=== PATIENT | male | born 1985 | race Two or more races ===

== ENCOUNTER 2023-03-08 17:20 | Inpatient (IN) | payer MEDICARE, MEDICAID ==
[2023-03-08] MEDS ORDERED: QUET200T5 PO (17:50)
[2023-03-08] MEDS ORDERED: LUMA42CA PO (17:50)
[2023-03-08 18:01] LABS: GLUCOMETER DEV NAME(LOC) POC.BV
[2023-03-08] MEDS ORDERED: LORazepam 2 MG/ML VIAL IM ONE (18:15)
[2023-03-08] MEDS ORDERED: DiphenhydrAMINE HCL 50 MG/ML VIAL IM ONE ×2 (18:15→20:00)
[2023-03-08] MEDS ORDERED: HALOPERIDOL LACTATE 5 MG/ML VIAL IM ONE (18:15)
[2023-03-08] MEDS ORDERED: ZOLPIDEM TARTRATE 10 MG TABLET PO PRN (18:15)
[2023-03-08 20:28] VITALS: BP 122/79
[2023-03-08 20:48] VITALS: BP 116/68
[2023-03-09] MEDS ORDERED: PETROLATUM,WHITE 28 GM JELLY TP PRN (05:45)
[2023-03-09] MEDS ORDERED: BACITRACIN 28 GM OINTMENT TP PRN (05:45)
[2023-03-09] MEDS ORDERED: OMEPRAZOLE 20 MG CAPSULE PO PRN (05:45)
[2023-03-09] MEDS ORDERED: MAGNESIUM HYDROXIDE SUSPENSION 30 ML UDCUP PO PRN (05:45)
[2023-03-09] MEDS ORDERED: DOCUSATE SODIUM 100 MG CAPSULE PO PRN (05:45)
[2023-03-09] MEDS ORDERED: CloNIDine HCL 0.1 MG TABLET PO PRN (05:45)
[2023-03-09] MEDS ORDERED: ACETAMINOPHEN 325 MG TABLET PO PRN (05:45)
[2023-03-09] MEDS ORDERED: ONDANSETRON HCL 4 MG TABLET PO PRN (05:45)
[2023-03-09] MEDS ORDERED: IBUPROFEN 600 MG TABLET PO PRN (05:45)
[2023-03-09] MEDS ORDERED: MAG HYDROX/AL HYDROX/SIMETH ES 30 ML SUSPENSION UDCUP PO PRN (05:45)
[2023-03-09] MEDS ORDERED: ALBUTEROL SULFATE HFA 90 MCG/PUFF 8 GM INHALER IH PRN (05:45)
[2023-03-09] MEDS ORDERED: LOPERAMIDE HCL 2 MG CAPSULE PO PRN (05:45)
[2023-03-09] MEDS: LORazepam 2 MG TABLET PO PRN ×2 (10:58→16:54)
[2023-03-09] MEDS: HALOPERIDOL 5 MG TABLET PO PRN (14:22)
[2023-03-10] MEDS: LITHIUM CARBONATE 300 MG CAPSULE PO SCH ×2 (17:00→17:48)
[2023-03-10] MEDS: DIVALPROEX SODIUM 500 MG DR TABLET PO SCH (17:48)
[2023-03-10] MEDS: QUEtiapine FUMARATE 300 MG TABLET PO SCH (20:05)
[2023-03-10] MEDS: LORazepam 2 MG TABLET PO PRN (20:05)
[2023-03-11 07:08] LABS: BASOPHILS % (AUTO) 0.7 % (0.0-2.0); EOSINOPHILS % (AUTO) 5.4 % (1.0-6.0); HEMATOCRIT 39.3 % (41-53); HEMOGLOBIN 12.8 g/dL (13.5-17.5); LYMPHOCYTES # (AUTO) 2.4 K/uL (1.0-4.8); LYMPHOCYTES % (AUTO) 31.2 % (22.0-44.0); MEAN CORPUSCULAR HGB CONC 32.7 G/dL (31.0-37.0); MEAN CORPUSCULAR VOLUME 83 fL (80-100); MONOCYTES # (AUTO) 0.5 K/uL (0.1-1.0); MONOCYTES % (AUTO) 6.7 % (2.0-9.0); NEUTROPHILS # (AUTO) 4.4 K/uL (1.8-7.7); PLATELET COUNT (AUTO) 322 K/uL (150-450); RED BLOOD CELL COUNT(AUTO) 4.76 MIL/uL (4.50-5.90); RED CELL DISTRIBUTION WIDTH 14.3 % (11.5-14.5)
[2023-03-11 07:37] LABS: ALANINE AMINOTRANSFERASE 63 U/L (12-78); ALBUMIN 3.2 g/dL (3.4-5.0); ALKALINE PHOSPHATASE 76 U/L (46-116); ANION GAP 13 mmol/L (8-16); ASPARTATE AMINOTRANSFERASE 24 U/L (15-37); BILIRUBIN,TOTAL 0.3 mg/dL (0.1-1.0); CALCIUM, TOTAL 8.7 mg/dL (8.8-10.5); CARBON DIOXIDE 25 mmol/L (22-29); CHLORIDE 106 mmol/L (98-107); CHOL/HDL RATIO 4.3 (4.2-7.3); CHOLESTEROL 145 mg/dL (131-200); CREATININE 0.65 mg/dL (0.60-1.30); FREE T4 (FREE THYROXINE) 1.35 ng/dL (0.76-1.46); GLOMERULAR FILTR. RATE CALC > 60 mL/min (>60); GLUCOSE,RANDOM 94 mg/dL (70-110); HDL CHOLESTEROL 34 mg/dL (40-60); LDL CHOL (CALC.) 90 mg/dL (0-130); POTASSIUM 3.6 mmol/L (3.5-5.1); SODIUM SERUM 144 mmol/L (136-145); THYROID STIMULATING HORMONE 1.96 uIU/mL (0.36-3.74); TOTAL PROTEIN, SERUM 6.8 g/dL (6.4-8.2); TRIGLYCERIDES 107 mg/dL (15-150)
[2023-03-11 07:41] LABS: HEMOGLOBIN A1C 5.5 % (3.8-5.6)
[2023-03-11] MEDS: LORazepam 2 MG TABLET PO PRN (08:09)
[2023-03-11] MEDS: DIVALPROEX SODIUM 500 MG DR TABLET PO SCH ×2 (08:09→17:00)
[2023-03-11] MEDS: LITHIUM CARBONATE 300 MG CAPSULE PO SCH ×2 (08:09→17:00)
[2023-03-11 08:17] VITALS: BP 107/61
[2023-03-11] MEDS: QUEtiapine FUMARATE 300 MG TABLET PO SCH (21:00)
[2023-03-12] MEDS: DIVALPROEX SODIUM 500 MG DR TABLET PO SCH ×4 (08:16→18:38)
[2023-03-12] MEDS: LITHIUM CARBONATE 300 MG CAPSULE PO SCH ×3 (08:16→17:00)
[2023-03-12 08:42] VITALS: BP 125/79
[2023-03-12] MEDS: QUEtiapine FUMARATE 300 MG TABLET PO SCH (21:00)
[2023-03-12 21:17] VITALS: BP 131/73
[2023-03-13 08:27] VITALS: BP 115/70
[2023-03-13] MEDS: LITHIUM CARBONATE 300 MG CAPSULE PO SCH ×2 (09:00→17:00)
[2023-03-13] MEDS: DIVALPROEX SODIUM 500 MG DR TABLET PO SCH ×2 (09:00→17:00)
[2023-03-13] MEDS: QUEtiapine FUMARATE 300 MG TABLET PO SCH (20:49)
[2023-03-13 22:11] VITALS: BP 132/73
[2023-03-14 07:35] LABS: LITHIUM < 0.20 mmol/L (0.60-1.20)
[2023-03-14 07:48] LABS: VALPROIC ACID 18 mcg/mL (50-100)
[2023-03-14] MEDS: LITHIUM CARBONATE 300 MG CAPSULE PO SCH ×2 (08:27→17:00)
[2023-03-14] MEDS: DIVALPROEX SODIUM 500 MG DR TABLET PO SCH ×2 (08:27→17:00)
[2023-03-14] MEDS ORDERED: LORazepam 2 MG/ML VIAL ONE ×2 (11:27→11:28)
[2023-03-14] MEDS ORDERED: LORazepam 2 MG/ML VIAL IM ONE ×3 (11:30→16:00)
[2023-03-14 20:11] VITALS: BP 118/66
[2023-03-14] MEDS: QUEtiapine FUMARATE 300 MG TABLET PO SCH (21:00)
[2023-03-15 08:23] VITALS: BP 112/71
[2023-03-15] MEDS: LITHIUM CARBONATE 300 MG CAPSULE PO SCH (08:25)
[2023-03-15] MEDS: DIVALPROEX SODIUM 500 MG DR TABLET PO SCH ×3 (08:29→09:18)
[2023-03-15] MEDS ORDERED: HALOPERIDOL DECANOATE 100 MG/ML VIAL IM ONE (10:30)
[2023-03-15] MEDS ORDERED: LORazepam 2 MG/ML VIAL ONE (12:12)
[2023-03-15] MEDS ORDERED: HALOPERIDOL LACTATE 5 MG/ML VIAL ONE (12:12)
[2023-03-15] MEDS ORDERED: DiphenhydrAMINE HCL 50 MG/ML VIAL ONE (12:13)
[2023-03-15] MEDS ORDERED: LORazepam 2 MG/ML VIAL IM ONE (12:30)
[2023-03-15] MEDS ORDERED: DiphenhydrAMINE HCL 50 MG/ML VIAL IM ONE (12:30)
[2023-03-15] MEDS ORDERED: HALOPERIDOL LACTATE 5 MG/ML VIAL IM ONE (12:30)
[2023-03-15 20:26] VITALS: BP 120/64
[2023-03-16 08:27] VITALS: BP 126/73
[2023-03-16 20:18] VITALS: BP 129/86
[2023-03-17] MEDS: LORazepam 2 MG TABLET PO PRN (08:35)
[2023-03-17] MEDS: HALOPERIDOL 5 MG TABLET PO PRN (08:35)
[2023-03-17 20:13] VITALS: BP 122/82
[2023-03-17] MEDS ORDERED: DiphenhydrAMINE HCL 50 MG/ML VIAL IM ONE (20:30)
[2023-03-17] MEDS ORDERED: LORazepam 2 MG/ML VIAL IM ONE (20:30)
[2023-03-17] MEDS ORDERED: HALOPERIDOL LACTATE 5 MG/ML VIAL IM ONE (20:30)
[2023-03-18] MEDS ORDERED: HALOPERIDOL DECANOATE 50 MG/ML VIAL IM ONE (10:30)
[2023-03-18 20:11] VITALS: BP 118/71
[2023-03-19] MEDS: HALOPERIDOL 5 MG TABLET PO PRN ×2 (07:44→18:54)
[2023-03-19] MEDS: LORazepam 2 MG TABLET PO PRN ×2 (07:44→18:54)
[2023-03-20 01:28] VITALS: BP 121/75
[2023-03-20 08:54] VITALS: BP 108/59
[2023-03-20] MEDS: HALOPERIDOL 5 MG TABLET PO PRN (12:01)
[2023-03-20] MEDS: LORazepam 2 MG TABLET PO PRN (12:01)
[2023-03-21 08:17] VITALS: BP 133/71
[2023-03-21 20:29] VITALS: BP 126/80
[2023-03-22 09:30] VITALS: BP 124/85
[2023-03-22 09:45] VITALS: BP 121/84
[2023-03-22 10:15] VITALS: BP 121/78
[2023-03-23 08:17] VITALS: BP 118/79
[2023-03-23 21:32] VITALS: BP 123/64
[2023-03-24 08:20] VITALS: BP 143/89
[2023-03-24 23:05] VITALS: BP 130/81
[2023-03-25 11:20] VITALS: BP 114/65
[2023-03-25] MEDS ORDERED: HALO100V36 IM (17:05)
[2023-04-14] MEDS ORDERED: HALOPERIDOL DECANOATE 100 MG/ML VIAL IM SCH (09:00)
== END 2023-03-25 22:12 | disposition home or self-care (01) | DRG 885 ==
LOC: B3A 18:10
PROVIDERS: ADMIT Psychiatry & Neurology Psychiatry; ATTEND Psychiatry & Neurology Psychiatry
DX: F25.9 Schizoaffective disorder, unspecified (principal); F06.1 Catatonic disorder due to known physiological condition; G47.00 Insomnia, unspecified; F41.9 Anxiety disorder, unspecified; Z20.822 Contact with and (suspected) exposure to COVID-19; K59.00 Constipation, unspecified; F94.0 Selective mutism; Z89.612 Acquired absence of left leg above knee
CPT/HCPCS: 80053; 80061; 80164; 80178; 83036; 84439; 84443; 85025; J1200; J1630; J1631; J2060

== ENCOUNTER 2023-03-27 20:40 | Inpatient (IN) | payer MEDICARE, MEDICAID ==
[~2023-03-27 20:40] MED LIST: HALO100V36 IM
[2023-03-27] MEDS ORDERED: LORazepam 2 MG TABLET PO PRN (23:00)
[2023-03-27] MEDS ORDERED: ZOLPIDEM TARTRATE 10 MG TABLET PO PRN (23:00)
[2023-03-27] MEDS ORDERED: HALOPERIDOL 5 MG TABLET PO PRN (23:00)
[2023-03-28 03:36] VITALS: BP 120/61
[2023-03-28] MEDS ORDERED: LOPERAMIDE HCL 2 MG CAPSULE PO PRN (05:45)
[2023-03-28] MEDS ORDERED: PETROLATUM,WHITE 28 GM JELLY TP PRN (05:45)
[2023-03-28] MEDS ORDERED: IBUPROFEN 600 MG TABLET PO PRN (05:45)
[2023-03-28] MEDS ORDERED: MAGNESIUM HYDROXIDE SUSPENSION 30 ML UDCUP PO PRN (05:45)
[2023-03-28] MEDS ORDERED: CloNIDine HCL 0.1 MG TABLET PO PRN (05:45)
[2023-03-28] MEDS ORDERED: OMEPRAZOLE 20 MG CAPSULE PO PRN (05:45)
[2023-03-28] MEDS ORDERED: MAG HYDROX/AL HYDROX/SIMETH ES 30 ML SUSPENSION UDCUP PO PRN (05:45)
[2023-03-28] MEDS ORDERED: BACITRACIN 28 GM OINTMENT TP PRN (05:45)
[2023-03-28] MEDS ORDERED: ACETAMINOPHEN 325 MG TABLET PO PRN (05:45)
[2023-03-28] MEDS ORDERED: DOCUSATE SODIUM 100 MG CAPSULE PO PRN (05:45)
[2023-03-28] MEDS ORDERED: ALBUTEROL SULFATE HFA 90 MCG/PUFF 8 GM INHALER IH PRN (05:45)
[2023-03-28] MEDS ORDERED: ONDANSETRON HCL 4 MG TABLET PO PRN (05:45)
[2023-03-28] MEDS ORDERED: HALO100V36 IM (09:46)
[2023-03-28 20:00] VITALS: BP 118/64
[2023-03-29 07:56] LABS: BASOPHILS % (AUTO) 0.5 % (0.0-2.0); EOSINOPHILS % (AUTO) 3.5 % (1.0-6.0); HEMATOCRIT 38.8 % (41-53); HEMOGLOBIN 12.7 g/dL (13.5-17.5); LYMPHOCYTES # (AUTO) 1.9 K/uL (1.0-4.8); LYMPHOCYTES % (AUTO) 18.9 % (22.0-44.0); MEAN CORPUSCULAR HEMOGLOBIN 26.9 pg (26.0-34.0); MEAN CORPUSCULAR HGB CONC 32.6 G/dL (31.0-37.0); MEAN CORPUSCULAR VOLUME 83 fL (80-100); MONOCYTES # (AUTO) 0.6 K/uL (0.1-1.0); MONOCYTES % (AUTO) 6.1 % (2.0-9.0); NEUTROPHILS # (AUTO) 7.1 K/uL (1.8-7.7); PLATELET COUNT (AUTO) 338 K/uL (150-450); RED CELL DISTRIBUTION WIDTH 14.4 % (11.5-14.5)
[2023-03-29 08:06] LABS: HEMOGLOBIN A1C 5.3 % (3.8-5.6)
[2023-03-29 08:25] LABS: ALANINE AMINOTRANSFERASE 55 U/L (12-78); ALBUMIN 3.1 g/dL (3.4-5.0); ALKALINE PHOSPHATASE 81 U/L (46-116); ANION GAP 7 mmol/L (8-16); ASPARTATE AMINOTRANSFERASE 30 U/L (15-37); BILIRUBIN,TOTAL 0.4 mg/dL (0.1-1.0); CALCIUM, TOTAL 8.9 mg/dL (8.8-10.5); CARBON DIOXIDE 25 mmol/L (22-29); CHLORIDE 105 mmol/L (98-107); CHOL/HDL RATIO 4.7 (4.2-7.3); CHOLESTEROL 178 mg/dL (131-200); CREATININE 0.61 mg/dL (0.60-1.30); FREE T4 (FREE THYROXINE) 1.19 ng/dL (0.76-1.46); GLOMERULAR FILTR. RATE CALC > 60 mL/min (>60); GLUCOSE,RANDOM 96 mg/dL (70-110); HDL CHOLESTEROL 38 mg/dL (40-60); LDL CHOL (CALC.) 126 mg/dL (0-130); POTASSIUM 4.1 mmol/L (3.5-5.1); SODIUM SERUM 137 mmol/L (136-145); THYROID STIMULATING HORMONE 1.74 uIU/mL (0.36-3.74); TOTAL PROTEIN, SERUM 6.9 g/dL (6.4-8.2); TRIGLYCERIDES 70 mg/dL (15-150); VALPROIC ACID 5 mcg/mL (50-100)
[2023-03-29 09:51] LABS: LITHIUM < 0.20 mmol/L (0.60-1.20)
[2023-03-30 08:07] VITALS: BP 117/65
[2023-03-30 20:17] VITALS: BP 118/73
[2023-03-31 08:21] VITALS: BP 105/56
[2023-03-31 20:02] VITALS: BP 128/64
== END 2023-03-31 21:40 | disposition left against medical advice (07) | DRG 885 ==
LOC: B3A 22:58
PROVIDERS: ADMIT Psychiatry & Neurology Psychiatry; ATTEND Psychiatry & Neurology Psychiatry
DX: F25.9 Schizoaffective disorder, unspecified (principal); F41.9 Anxiety disorder, unspecified; Z53.29 Procedure and treatment not carried out because of patient's decision for other reasons; G47.00 Insomnia, unspecified; K59.00 Constipation, unspecified; Z56.0 Unemployment, unspecified; Z89.612 Acquired absence of left leg above knee
CPT/HCPCS: 80053; 80061; 80164; 80178; 83036; 84439; 84443; 85025; 87081

== ENCOUNTER 2023-03-27 22:43 | Emergency (ER) | payer OTHER ==
[~2023-03-27] VITALS: Ht 167.6 cm; Wt 77.3 kg
[2023-03-27] MEDS ORDERED: DiphenhydrAMINE HCL 50 MG/ML VIAL IM ONE (23:00)
[2023-03-27] MEDS ORDERED: HALOPERIDOL LACTATE 5 MG/ML VIAL IM ONE (23:00)
[2023-03-27] MEDS ORDERED: LORazepam 2 MG/ML VIAL IM ONE (23:00)
[2023-03-27 23:20] LABS: BASOPHILS % (AUTO) 0.8 % (0.0-2.0); HEMATOCRIT 40.3 % (41-53); HEMOGLOBIN 13.1 g/dL (13.5-17.5); LYMPHOCYTES # (AUTO) 2.2 K/uL (1.0-4.8); LYMPHOCYTES % (AUTO) 19.4 % (22.0-44.0); MEAN CORPUSCULAR HEMOGLOBIN 26.8 pg (26.0-34.0); MEAN CORPUSCULAR HGB CONC 32.5 G/dL (31.0-37.0); MEAN CORPUSCULAR VOLUME 83 fL (80-100); MONOCYTES # (AUTO) 0.8 K/uL (0.1-1.0); MONOCYTES % (AUTO) 7.2 % (2.0-9.0); NEUTROPHILS # (AUTO) 8.2 K/uL (1.8-7.7); NEUTROPHILS % (AUTO) 70.6 % (40.0-70.0); PLATELET COUNT (AUTO) 390 K/uL (150-450); RED BLOOD CELL COUNT(AUTO) 4.89 MIL/uL (4.50-5.90); RED CELL DISTRIBUTION WIDTH 14.6 % (11.5-14.5)
[2023-03-27 23:35] LABS: AMPHET/METH SCREEN,URINE NEGATIVE (NEGATIVE); BARBITURATE SCREEN, URINE NEGATIVE (NEGATIVE); BENZODIAZEPINES SCREEN,URINE NEGATIVE (NEGATIVE); CANNABINOID SCREEN,URINE NEGATIVE (NEGATIVE); COCAINE SCREEN,URINE NEGATIVE (NEGATIVE); METHADONE SCREEN, URINE NEGATIVE (NEGATIVE); OPIATE SCREEN,URINE NEGATIVE (NEGATIVE); PHENCYCLIDINE SCREEN,URINE NEGATIVE (NEGATIVE)
[2023-03-27 23:40] LABS: ALANINE AMINOTRANSFERASE 44 U/L (12-78); ALBUMIN 3.5 g/dL (3.4-5.0); ALKALINE PHOSPHATASE 89 U/L (46-116); ANION GAP 10 mmol/L (8-16); ASPARTATE AMINOTRANSFERASE 19 U/L (15-37); BILIRUBIN,TOTAL 0.2 mg/dL (0.1-1.0); CALCIUM, TOTAL 8.8 mg/dL (8.8-10.5); CARBON DIOXIDE 28 mmol/L (22-29); CHLORIDE 105 mmol/L (98-107); GLOMERULAR FILTR. RATE CALC > 60 mL/min (>60); GLUCOSE,RANDOM 115 mg/dL (70-110); POTASSIUM 3.7 mmol/L (3.5-5.1); SODIUM SERUM 143 mmol/L (136-145); TOTAL PROTEIN, SERUM 7.4 g/dL (6.4-8.2)
[2023-03-27 23:45] VITALS: BP 121/78
[2023-03-28 00:07] LABS: COVID AG,FIA SOURCE NASOPHARYNGEAL
[2023-03-28] MEDS ORDERED: HALO100V36 IM (09:46)
== END 2023-03-28 02:40 | disposition home or self-care (01) ==
LOC: EMS 22:44
DX: F20.9 Schizophrenia, unspecified (principal); Z20.822 Contact with and (suspected) exposure to COVID-19
CPT/HCPCS: 99285; 87426; 80053; 85025; 36415; 96372; 80307 ×2; G0480; J1200; J1630; J2060

== ENCOUNTER 2023-04-25 15:07 | Inpatient (IN) | payer MEDICARE, MEDICAID ==
[2023-04-25] MEDS ORDERED: LORazepam 2 MG/ML VIAL IM ONE (15:45)
[2023-04-25] MEDS ORDERED: DiphenhydrAMINE HCL 50 MG/ML VIAL IM ONE (15:45)
[2023-04-25] MEDS ORDERED: HALOPERIDOL LACTATE 5 MG/ML VIAL IM ONE (15:45)
[2023-04-25 16:00] VITALS: BP 138/85; PULSE 113; RESP 18; TEMP 98.4; O2SAT 98
[2023-04-25] MEDS ORDERED: HALOPERIDOL 5 MG TABLET PO PRN (16:15)
[2023-04-25] MEDS ORDERED: LORazepam 2 MG TABLET PO PRN (16:15)
[2023-04-25] MEDS ORDERED: ZOLPIDEM TARTRATE 10 MG TABLET PO PRN (16:15)
[2023-04-25] MEDS ORDERED: AMAN-24 PO (16:21)
[2023-04-25] MEDS ORDERED: TRAZ-257 PO (16:21)
[2023-04-25] MEDS ORDERED: HALO2ORA11 PO (16:21)
[2023-04-25 16:56] VITALS: RESP 20
[2023-04-25 18:42] LABS: GLUCOMETER DEV NAME(LOC) POC.BV
[2023-04-25 20:10] VITALS: BP 138/78; PULSE 108; RESP 20; TEMP 98.2; O2SAT 98
[2023-04-26] MEDS ORDERED: OMEPRAZOLE 20 MG CAPSULE PO PRN (05:45)
[2023-04-26] MEDS ORDERED: LOPERAMIDE HCL 2 MG CAPSULE PO PRN (05:45)
[2023-04-26] MEDS ORDERED: MAGNESIUM HYDROXIDE SUSPENSION 30 ML UDCUP PO PRN (05:45)
[2023-04-26] MEDS ORDERED: ACETAMINOPHEN 325 MG TABLET PO PRN (05:45)
[2023-04-26] MEDS ORDERED: MAG HYDROX/AL HYDROX/SIMETH ES 30 ML SUSPENSION UDCUP PO PRN (05:45)
[2023-04-26] MEDS ORDERED: DOCUSATE SODIUM 100 MG CAPSULE PO PRN (05:45)
[2023-04-26] MEDS ORDERED: ONDANSETRON HCL 4 MG TABLET PO PRN (05:45)
[2023-04-26] MEDS ORDERED: CloNIDine HCL 0.1 MG TABLET PO PRN (05:45)
[2023-04-26] MEDS ORDERED: IBUPROFEN 600 MG TABLET PO PRN (05:45)
[2023-04-26] MEDS ORDERED: BENZOCAINE/MENTHOL LOZENGE PO PRN (05:45)
[2023-04-26] MEDS ORDERED: BACITRACIN 28 GM OINTMENT TP PRN (05:45)
[2023-04-26] MEDS ORDERED: ALBUTEROL SULFATE HFA 90 MCG/PUFF 8 GM INHALER IH PRN (05:45)
[2023-04-26] MEDS ORDERED: PETROLATUM,WHITE 28 GM JELLY TP PRN (05:45)
[2023-04-26 08:07] LABS: BASOPHILS % (AUTO) 0.7 % (0.0-2.0); EOSINOPHILS % (AUTO) 2.7 % (1.0-6.0); HEMATOCRIT 41.4 % (41-53); HEMOGLOBIN 13.4 g/dL (13.5-17.5); LYMPHOCYTES # (AUTO) 1.8 K/uL (1.0-4.8); LYMPHOCYTES % (AUTO) 19.8 % (22.0-44.0); MEAN CORPUSCULAR HEMOGLOBIN 26.7 pg (26.0-34.0); MEAN CORPUSCULAR HGB CONC 32.4 G/dL (31.0-37.0); MEAN CORPUSCULAR VOLUME 82 fL (80-100); MONOCYTES # (AUTO) 0.6 K/uL (0.1-1.0); MONOCYTES % (AUTO) 6.4 % (2.0-9.0); NEUTROPHILS # (AUTO) 6.4 K/uL (1.8-7.7); NEUTROPHILS % (AUTO) 70.4 % (40.0-70.0); PLATELET COUNT (AUTO) 366 K/uL (150-450); RED BLOOD CELL COUNT(AUTO) 5.02 MIL/uL (4.50-5.90); RED CELL DISTRIBUTION WIDTH 13.9 % (11.5-14.5)
[2023-04-26 08:10] VITALS: BP 112/67; PULSE 96; RESP 17; TEMP 98.3; O2SAT 98
[2023-04-26 08:34] LABS: ALANINE AMINOTRANSFERASE 36 U/L (12-78); ALBUMIN 3.5 g/dL (3.4-5.0); ALKALINE PHOSPHATASE 99 U/L (46-116); ANION GAP 10 mmol/L (8-16); ASPARTATE AMINOTRANSFERASE 29 U/L (15-37); BILIRUBIN,TOTAL 0.5 mg/dL (0.1-1.0); CALCIUM, TOTAL 8.7 mg/dL (8.8-10.5); CARBON DIOXIDE 26 mmol/L (22-29); CHLORIDE 102 mmol/L (98-107); CREATININE 0.73 mg/dL (0.60-1.30); FREE T4 (FREE THYROXINE) 1.46 ng/dL (0.76-1.46); GLOMERULAR FILTR. RATE CALC > 60 mL/min (>60); GLUCOSE,RANDOM 87 mg/dL (70-110); POTASSIUM 3.9 mmol/L (3.5-5.1); SODIUM SERUM 138 mmol/L (136-145); TOTAL PROTEIN, SERUM 7.5 g/dL (6.4-8.2)
[2023-04-26 20:11] VITALS: BP 114/70; PULSE 92; RESP 20; TEMP 97.9; O2SAT 99
[2023-04-27 05:08] LABS: HEPATITIS C AB (EIA) Non Reactive (Non Reactive)
[2023-04-27 08:29] VITALS: BP 125/74; PULSE 84; RESP 18; TEMP 97.3; O2SAT 98
[2023-04-27 20:08] VITALS: RESP 19; TEMP 98
[2023-04-28 09:12] VITALS: BP 122/88; PULSE 92; RESP 18; TEMP 98.1; O2SAT 97
[2023-04-28] MEDS ORDERED: HALOPERIDOL LACTATE 5 MG/ML VIAL IM ONE (18:15)
[2023-04-28] MEDS ORDERED: LORazepam 2 MG/ML VIAL IM ONE (18:15)
[2023-04-28 20:15] VITALS: BP 113/65; PULSE 83; RESP 20; TEMP 98.1; O2SAT 97
[2023-04-29 08:26] VITALS: BP 119/78; PULSE 100; RESP 17; TEMP 97.8; O2SAT 99
[2023-04-29 19:52] VITALS: BP 117/76; PULSE 88; RESP 20; TEMP 98; O2SAT 98
== END 2023-04-29 20:50 | disposition home or self-care (01) | DRG 885 ==
LOC: B3A 16:12
PROVIDERS: ADMIT Psychiatry & Neurology Psychiatry; ATTEND Psychiatry & Neurology Psychiatry
DX: F25.9 Schizoaffective disorder, unspecified (principal); G47.00 Insomnia, unspecified; K59.00 Constipation, unspecified; F41.9 Anxiety disorder, unspecified; Z20.822 Contact with and (suspected) exposure to COVID-19; Z89.612 Acquired absence of left leg above knee
CPT/HCPCS: 80053; 84439; 84443; 85025; 86803; 87081; 87340; J1630; J2060